=== PATIENT | male | born 1980 | race Caucasian/White ===

== ENCOUNTER 2016-06-20 04:35 | Emergency (ER) | payer SELFPAY ==
[~2016-06-20] VITALS: Ht 180.3 cm; Wt 80.0 kg
[~2016-06-20 04:35] MED LIST: CIPR500T21 PO; CIPR500T4 PO; CLON-412 PO; CLON2TAB3 PO; IBUP-1542 PO; VENL37.56 PO
[2016-06-20 05:01] VITALS: Ht 180.3 cm; Wt 80.0 kg
== END 2016-06-20 05:30 | disposition left against medical advice (07) ==
LOC: E/R 04:35
DX: Z53.21 Procedure and treatment not carried out due to patient leaving prior to being seen by health care provider (principal)

== ENCOUNTER 2016-06-20 19:45 | Emergency (ER) | payer OTHER ==
[~2016-06-20] VITALS: Ht 180.3 cm; Wt 81.8 kg
[2016-06-20 19:55] VITALS: Ht 180.3 cm; Wt 81.8 kg
--- NOTE | 2016-06-20 21:31 | ERD ---
ER Documentation Chief Complaint Date/Time DATE: 06/20/16 TIME: 21:29 Chief Complaint suicide ideation,plan to run through oncoming traffic,c/o back pain HPI Patient is a 36-year-old male with anxiety and depression who presents with suicidal ideation. The patient was brought in by ambulance. The patient stopped the police because he was having thoughts of wanting to jump in front of traffic to hurt himself. He denies homicidal ideation. He was recently admitted and [facility] for alcohol detoxification. Please note history and physical exam is limited secondary to the patient's hesitancy with answering some questions. ROS All systems reviewed and are negative except as per history of present illness. Medications Home Meds Active Scripts Venlafaxine Hcl* (Effexor*) 37.5 Mg Tablet, 37.5 MG PO BID for 7 Days, TAB Prov:AILYN DAVID MD 10/26/15 Clonazepam* (Klonopin*) 1 Mg Tablet, 1 MG PO DAILY, #7 TAB Prov:AILYN DAVID MD 10/26/15 Ciprofloxacin Hcl* (Ciprofloxacin Hcl*) 500 Mg Tablet, 500 MG PO BID for 10 Days , TAB Prov:AILYN DAVID MD 10/26/15 Ibuprofen* (Motrin*) 600 Mg Tab, 600 MG PO Q6H Y for PAIN AND OR ELEVATED TEMP, #15 TAB Prov:AILYN DAVID MD 10/26/15 Reported Medications Ciprofloxacin Hcl* (Ciprofloxacin* ER) 500 Mg/Bottle Tbmp.24hr, 500 MG PO BID, TAB.SA 10/26/15 Clonazepam* (Clonazepam*) 2 Mg Tablet, 2 MG PO TID 01/10/11 Allergies Allergies: Coded Allergies: ketorolac tromethamine (Verified Allergy, Severe, HIVES, 06/20/16) PMhx/Soc History of Surgery: Yes (multiple neck surgeries) Anesthesia Reaction: No Hx Neurological Disorder: No Hx Respiratory Disorders: No Hx Cardiac Disorders: No Hx Psychiatric Problems: Yes (panic disorder, depression, d/c'd from [facility] today) Hx Miscellaneous Medical Probl: No Hx Alcohol Use: No Hx Substance Use: Yes (previously used heroin) Hx Tobacco Use: Yes FmHx Family History: No diabetes Physical Exam Vitals Vital Signs Date Time Temp Pulse Resp B/P Pulse Ox O2 Delivery O2 Flow Rate FiO2 06/20/16 19:55 98.3 86 18 165/100 98 Physical Exam Const: No acute distress Head: Atraumatic Eyes: Normal Conjunctiva ENT: Normal External Ears, Nose and Mouth. Neck: Full range of motion..~ No meningismus. Resp: Clear to auscultation bilaterally Cardio: Regular rate and rhythm, no murmurs Abd: Soft, non tender, non distended. Normal bowel sounds Skin: No petechiae or rashes Back: No midline or flank tenderness Ext: No cyanosis, or edema Neur: Awake but confused to time Psych: Flat affect and admits to suicidal ideation with plan to jump in front of traffic Procedures/MDM Smoking Cessation Therapy: Pt. was lectured for greater than 3 minutes on the health risks of continued smoking and the benefits of cessation. Patient is a 36-year-old male with anxiety and depression who presents with suicidal ideation with plan to jump in front of traffic. I want her laboratory studies and psychiatric evaluation. Unfortunately the patient eloped prior to receiving these tests in consultation. I was concerned about his possible risk for suicide and therefore I instructed the charge nurse Lorenza that we needed to make a police report to find the patient and bring him back to the ER for his evaluation. Departure Diagnosis: Primary Impression: Suicidal ideation Condition: Fair Patient Instructions: Recognizing Suicide Warning Signs in Yourself Referrals: JUSTYNA GAXIOLA (PCP) Additional Instructions: Call your primary care doctor TOMORROW for an appointment during the next 1-2 days.See the doctor sooner or return here if your condition worsens before your appointment time. GLORIA BURRIS MD Jun 20, 2016 21:31
== END 2016-06-20 20:00 | disposition left against medical advice (07) ==
LOC: E/R 19:45
DX: F41.9 Anxiety disorder, unspecified (principal); R45.851 Suicidal ideations; Z87.891 Personal history of nicotine dependence
CPT/HCPCS: 99282